=== PATIENT | male | born 1940 | race Caucasian/White ===

== ENCOUNTER → 2021-06-19 10:15 | Outpatient (BNVA) | payer MEDICARE, MEDICAID, SELFPAY | PROVIDERS: Visit Provider Surgery | DX: Z20.822 Contact with and (suspected) exposure to COVID-19 (principal) | CPT/HCPCS: 87635 ==

== ENCOUNTER → 2021-07-03 10:11 | Outpatient (BNVA) | payer MEDICARE, MEDICAID, SELFPAY | PROVIDERS: Visit Provider Surgery | DX: Z11.52 Encounter for screening for COVID-19 (principal); Z20.822 Contact with and (suspected) exposure to COVID-19 | CPT/HCPCS: 87635 ==

== ENCOUNTER 2021-07-08 08:19 | Day surgery (SDC) | payer MEDICARE, MEDICAID, SELFPAY ==
[2021-07-07 14:00] VITALS: BMI 22.0
[2021-07-08] VITALS (9 sets, daily range): BP systolic 124–188; BP diastolic 61–98; PULSE 57–65; RESP 12–18; TEMP 36.6–36.8; O2SAT 96–100
[2021-07-08] MEDS: sodium chloride 0.9% 1,000 ML 30 ML IV (09:01)
--- NOTE | 2021-07-08 10:03 | ANES.PREANE2 ---
Pre-Anesthetic Assessment Pre-Anesthetic Assessment: Height/Weight: Height 1.73 m Weight 65.771 kg Temp Pulse Resp Pulse Ox 98.3 F 58 L 18 100 07/08/21 08:39 07/08/21 08:39 07/08/21 08:39 07/08/21 08:39 Preop Diagnosis: Basal cell carcinoma of the skin of the neck Proposed Procedure: Operation Date: 07/08/21 12:25 Proposed Procedures p Excision Mass/Lesion/Cyst Upper Extremit right side of neck(Right) - Ady White MD Familial anesthetic complications: none Was Beta Reagan taken within 24 hours: N/A Was Clonidine taken within 24 hours: N/A Last intake: Intake Last Liquid Date 07/07/21 Last Liquid Time 16:00 Last Solid Date 07/07/21 Last Solid Time 16:00 Social: Social History: Alcohol and No tobacco Comment: 1-2 beers daily Exam: Pre-Anes Outpt Exam: alert, oriented x 3, clear to auscultation bilaterally and regular rate & rhythm Airway: Cervical ROM: WNL MP: 2 Dentition: Full Pulmonary: Pulmonary: Asthma (childhood asthma) Comments: allergies CV/HEM: CV/HEM: HTN GI: GI: GERD Anesthetic Plan: ASA status: 2 Anesthesia: General Risk of > 500 ml blood loss (7ml/kg in children): No Meds/Allergies Current Medications: Current Medications Generic Name Dose Route Start Last Admin Trade Name Freq PRN Reason Stop Dose Admin Sodium Chloride 1,000 mls @ 30 ml s/hr 07/08/21 08:45 07/08/21 09:01 Sodium Chloride 0.9% IV 07/09/21 08:44 30 mls/hr .Q24H DUNG Administration PFSH Anesthesia PFSH: Family History Other CAD (coronary artery disease) Cancer Denies family history of Diabetes Dementia Social History Smoking and tobacco status: former smoker Data Anesthesia Cardiac Studies: No Data to Display
--- NOTE | 2021-07-08 10:37 | P.HP_ITS ---
Same Day Surgery H&P Indication for Procedure/HPI DATE OF PROCEDURE: July 08, 2021 CHIEF COMPLAINT/INDICATIONFOR SURGICAL PROCEDURE: Spot on my neck PREOP DIAGNOSIS: Basal cell carcinoma of the skin of the neck PLANNED PROCEDRUE: Operation Date: 07/08/21 12:25 Proposed Procedures p Excision Mass/Lesion/Cyst Upper Extremit right side of neck(Right) - Ady White MD This is a pleasant 80 years old gentleman referred to my practice after being diagnosed with basal cell carcinoma of the skin lesion that was biopsied on the right side of the neck. Patient reports to me that he had a previous skin cancer on the right shoulder that was removed before. Interval history 07/08/2021 Patient comes today for wide local excision of right-sided neck basal cell carcinoma ROS Systems have been reviewed negative except as per the above or per problem list Medications/Allergies* Home Medications Medication Instructions Recorded Confirmed Type amlodipine 10 mg tablet 10 mg PO DAILY 06/05/21 07/08/21 History lisinopril 10 mg tablet 10 mg PO DAILY 06/05/21 07/08/21 History omeprazole 20 mg capsule,delayed 20 mg PO DAILY 06/05/21 07/08/21 History release Allergies/Adverse Reactions Allergy/AdvReac Type Severity Reaction Status Date / Time codeine Allergy Unknown Unknown Verified 07/08/21 10:38 hydrochlorothiazide Allergy Unknown Unknown Verified 07/08/21 10:38 morphine Allergy Unknown Unknown Verified 07/08/21 10:38 Current Medications: Generic Name Dose Route Start Last Admin Trade Name Freq PRN Reason Stop Dose Admin Sodium Chloride 1,000 mls @ 30 mls/hr 07/08/21 08:45 07/08/21 09:01 Sodium Chloride 0.9% IV 07/09/21 08:44 30 mls/hr .Q24H DUNG Administration Pertinent History/Comorbid Conditions* Family History (Updated 06/06/21 @ 14:44 by Yenni Comer) CAD (coronary artery disease) Cancer Denies family history of Diabetes Dementia Social History Smoking and tobacco status: former smoker Pertinent Exam Findings alert, oriented x 3, regular rate & rhythm, operative site marked and procedure specific exam findings (Right-sided neck scar) Recommendations Surgery/Procedure today (Wide local excision of right-sided neck basal cell carcinoma) Coding Level of Care Code Acute Supervisor Rubber Covering for g Keith
[2021-07-08] MEDS: lidocaine 2% INJ 20 mL INJECTION (11:20)
--- NOTE | 2021-07-08 11:39 | P.OP_ITS ---
Operative Report Date of procedure: July 08, 2021 Pre-op Diagnosis: Basal cell carcinoma of the skin of the neck Post-op diagnosis: same Procedure Done: Wide local excision of right-sided neck basal cell carcinoma Elevation of skin flaps Specimens removed/disposition: Short sutures marked superior and long sutures marked lateral Surgeon: Ady White Section Laborer: technical support associate Nader Circulating nurse Janis Miles Anesthesia: General (LMA web content writer Adria) Estimated blood loss (mL): 10 Condition: stable Disposition: same day Brief History: History of right-sided neck basal cell carcinoma. Procedure: After identifying the patient holding area, the correct site and side was marked before the procedure by myself, patient was then taken to the operative suite, was placed in first in supine position, LMA was placed by the anesthesia provider ,Time-out was done verifying the patient's name/date of /planned procedure and destination after the procedure, all were in agreement. SCDs confirmed to be functioning, preoperative antibiotics administered per protocol, and beta lore protocol was confirmed Patient's neck was then placed inthe left lateral position and was appropriately padded and secured to the operating table, Right arm was tucked to his body, prep and drape of the right neck region was done under the usual sterile technique. The neck mass was well palpable at the right submandibular region Local anesthesia 2% lidocaine was infiltrated site of the incision, elliptical transverse skin incision was done with appropriate safety margin, including skin and subcutaneous tissues, including platysma muscle layer. The whole previous scar and residual lesions were excised en jose, the specimen had short sutures marked superior and long sutures marked lateral. Measurement of the scar 3 cm x 0.5 cm x 0.3 cm Elevation of superior and inferior skin flaps was done for appropriate closure without tension, appropriate hemostasis was achieved, deep subcuticular 3-0 Vicryl including platysma muscle was done followed by continuous 4-0 nylon sutures then triple antibiotic ointment then pressure dressing Count was completed at the end of the procedure Patient was taken to the recovery room in stable condition after extubation I was present for the whole entire procedure
[2021-07-08] MEDS: neomycin-poly-bacitracin oint 28 gm 1 APPLIC TOPICAL (11:40)
--- NOTE | 2021-07-08 11:54 | P.PCN_ITS ---
PACU note PACU note: VSS, Good respiratory effort, report to CONDUCTOR AND ENGINEER Post-Anesthesia Exam: awake
--- NOTE | 2021-07-08 11:54 | PM.PACU ---
PACU note PACU note: VSS, Good respiratory effort, report to BRIEFCASE SEWER Post-Anesthesia Exam: awake
--- NOTE | 2021-07-08 14:14 | ANE.PACU2 ---
Inpatient post-anesthesia follow up: Airway intact: Yes Vital signs: Temperature 98.3 F Pulse Rate 58 Respiratory Rate 18 Blood Pressure 135/66 Pulse Oximetry 100 Oxygen Delivery Me thod Room Air Oxygen Flow Rate Fraction of Inspir ed Oxygen Hydration adequate: Yes Nausea and vomiting: No Pain level: 2 Mental status: Baseline
== END 2021-07-08 14:05 | disposition home or self-care (01) ==
PROVIDERS: PCP Family Medicine; Visit Provider Surgery
PROC: (CPT 11623; principal; 2021-07-08 12:15)
DX: C44.41 Basal cell carcinoma of skin of scalp and neck (principal); I10 Essential (primary) hypertension; K21.9 Gastro-esophageal reflux disease without esophagitis; Z87.891 Personal history of nicotine dependence
CPT/HCPCS: 11623; 17999; 88304; J0690; J2704; J3010; J7030

== ENCOUNTER → 2022-02-26 13:10 | Outpatient (BNVA) | payer MEDICARE, MEDICAID, SELFPAY | PROVIDERS: PCP Family Medicine; Visit Provider Surgery | DX: Z98.890 Other specified postprocedural states (principal) ==

== ENCOUNTER 2023-07-12 10:31 | Oncology outpatient (recurring) (ONCR) | payer MEDICARE, MEDICAID, SELFPAY ==
[2023-07-12 13:37] LABS: Basophils % 0.5 %; Eosinophils % 0.2 %; Hematocrit 35.9 % (42.0-52.0); Hemoglobin 12.4 g/dL (11.7-16.6); Lymphocytes # 1.1 10^3/uL (0.8-4.8); Lymphocytes % 19.4 %; Mean Corpuscular HGB Conc 34.5 g/dL (30.0-36.0); Mean Corpuscular Hemoglobin 32.8 pg (28.0-34.0); Mean Platelet Volume 12.6 fL (7.4-10.4); Monocytes # 0.7 10^3/uL (0.2-0.9); Monocytes % 11.5 %; Neutrophils # 3.82 10^3/uL (1.8-7.7); Neutrophils % 66.3 %; Nucleated Red Blood Cells % 0 %; Platelet Count 95 10^3/cmm (130-400); Red Blood Count 3.78 10^6/uL (4.1-5.3); Red Cell Distribution Width 13.5 % (12.1-15.1); White Blood Count 5.8 10^3/uL (4.0-10.0)
[2023-07-12 14:15] LABS: Hepatitis A Antibody IgM Non-Reactive (Nonreactive); Hepatitis B Core AB, Total Non-Reactive (Nonreactive); Hepatitis B Surface Antigen Non-Reactive (Nonreactive); Hepatitis C Virus Antibody Non-Reactive (Nonreactive)
[2023-07-12 14:16] LABS: Hepatitis B Surface AB < 3.5 (11.5-1000)
[2023-07-12 14:19] LABS: Alanine Aminotransferase 14 U/L (0-41); Albumin Level 4.7 g/dL (3.5-5.2); Alkaline Phosphatase 56 U/L (40-130); Anion Gap 16.1 (5-19); Aspartate Amino Transferase 18 U/L (0-40); Blood Urea Nitrogen 15 mg/dL (8-23); Calcium 9.3 mg/dL (8.5-10.5); Carbon Dioxide 24 mmol/L (22-29); Chloride 105 mmol/L (98-107); Ferritin 114 ng/mL (30-400); Globulin 2.4 g/dL (1.3-4.6); Glucose 89 mg/dL (65-115); Iron 104 ug/dL (59-158); Osmolality Calculated 292 mOsm/kg (285-295); Percent Saturation 30.3 % (20-50); Potassium 4.1 mmol/L (3.5-5.1); Sodium 141 mmol/L (136-145); Thyroid Stimulating Hormone 1.45 uIU/mL (0.27-4.20); Total Bilirubin 0.8 mg/dL (0.15-1.2); Total Iron Binding Capacity 343 mcg/dl; Total Protein 7.1 g/dL (6.6-8.7); Unsaturated Iron Binding 239 ug/dL (112-347); Vitamin B12 1467 pg/mL (232-1245)
[2023-07-12 14:22] LABS: Folate Level > 20.0 ng/mL (4.5-32.2)
[2023-07-12 14:26] LABS: LAB Peripheral Smear Sent for Review
[2023-07-12 14:42] LABS: Free T4 Free Thyroxine 1.14 ng/dL (0.82-1.77)
[2023-07-13 18:44] LABS: Anti-Nuclear Antibody Screen NEGATIVE (NEGATIVE)
[2023-07-14 14:07] LABS: Leukemia Profile (BBPL) See Report
[2023-07-14 19:00] LABS: PTT-LA-Screen 35 sec (< OR = 40)
[2023-07-16 20:50] LABS: P190 BCR ALB1 NOT DETECTED; P190 BCR ALB1 Yes Test Yes; P210 BCR ALB1 NOT DETECTED; P210 BCR ALB1 Yes Test Yes; Prior Results NG; Source blood
== END 2023-07-22 23:59 | disposition home or self-care (01) ==
PROVIDERS: PCP Family Medicine; Visit Provider Internal Medicine Medical Oncology
DX: D61.818 Other pancytopenia (principal); D50.9 Iron deficiency anemia, unspecified; F10.20 Alcohol dependence, uncomplicated; D69.6 Thrombocytopenia, unspecified; Z79.899 Other long term (current) drug therapy; Z87.891 Personal history of nicotine dependence
CPT/HCPCS: 36415; 80053; 80503; 81206; 81207; 82607; 82728; 82746; 83540; 83550; 84439; 84443; 85025; 85613; 85730; 86038; 86705; 86706; 86709; 86803; 87340; 88184; 88185; 99205

== ENCOUNTER 2023-07-20 06:50 | Outpatient (CLI) | payer MEDICARE, MEDICAID, SELFPAY ==
--- NOTE | 2023-07-20 07:15 | US_ITS ---
WS: [id number] Complete ABDOMINAL ULTRASOUND HISTORY: Special attention to liver and spleen COMPARISON: None available. Liver: 12.9 cm in length. Normal size liver and echogenicity. No bile duct dilatation or mass. Portal Vein: Normal hepatopetal flow with monophasic waveform. Gallbladder: Markedly contracted gallbladder. Patient was not fasting for this examination. No stones are identified prior CBD: 0.4 cm Pancreas: Partially obscured. Only a small portion of the body is visualized. Remaining gland is obsc ured by gas. Right kidney: 11.7 cm x 5.9 x 6.6 cm. Cortex: 1.4 cm. Heterogeneous kidney. No obstruction. There is a solid mass of increased echogenicity with a few scat tered hypoechoic areas involving the superior pole. Mass measures approximately 6.0 x 5.7 cm and need s to be further evaluated. There is bulging of the contour. There is an additional area of increased echogenicity within the mid renal parenchyma. Left kidney: 11.6 cm x 4.9 cm x 4.9 cm. Cortex: 1.2 cm. Normal size and echogenicity. No hydronephrosis or mass. Simple cyst superior pole 2.6 x 2.3 x 1.8 cm . Spleen: Normal size spleen. Spleen measures 12.5 cm. No mass. Aorta and IVC: Unremarkable abdominal aorta and IVC. Impression: 1. Solid, hyperechoic mass superior pole RIGHT kidney measures 6.0 x 5.7 cm. Additional area of incre ased echogenicity in the mid kidney. Recommend follow-up renal mass CT protocol. Differential include s atypical renal cell neoplasm, oncocytoma and angiomyolipoma. 2. Contracted gallbladder due to nonfasting state. Gallbladder with poor visualization. 3. Normal size liver and spleen. 4. Simple cyst superior pole LEFT kidney.
== END 2023-07-20 06:51 | disposition home or self-care (01) ==
LOC: RAD 06:51
PROVIDERS: PCP Family Medicine; Visit Provider Internal Medicine Medical Oncology
DX: Z87.898 Personal history of other specified conditions (principal); N28.89 Other specified disorders of kidney and ureter; N28.1 Cyst of kidney, acquired
CPT/HCPCS: 76700

== ENCOUNTER 2023-08-09 15:40 | Oncology outpatient (recurring) (ONCR) | payer MEDICARE, MEDICAID, SELFPAY | END 2023-08-21 23:59 | disposition home or self-care (01) | PROVIDERS: PCP Family Medicine; Visit Provider Internal Medicine Medical Oncology | DX: N28.89 Other specified disorders of kidney and ureter (principal); D75.89 Other specified diseases of blood and blood-forming organs | CPT/HCPCS: 99214 ==

== ENCOUNTER 2023-08-12 15:20 | Outpatient (CLI) | payer MEDICARE, MEDICAID, SELFPAY ==
--- NOTE | 2023-08-12 15:30 | CT_ITS ---
WS: [id number] CT ABDOMEN WITH AND WITHOUT CONTRAST HISTORY: Renal mass seen by ultrasound. Follow-up. Multiphase [address] evaluation of the kidneys performed. Oral contrast has not been provided. Coronal and sagittal reformats are submitted. All CT scans at [facility] use at least one of these do se optimization techniques: automated exposure control; mA and/or kV adjustment per patient size (inc ludes targeted exams where dose is matched to clinical indication); or iterative reconstruction. IV CONTRAST: Omnipaque 350; 100 mL IV. Oral contrast: No DLP: 1064.86 mGy.cm COMPARISON: Ultrasound 07/20/2023 Lower thorax: Hyperinflated. Subsegmental area of atelectasis along the medial RIGHT lower lobe. Mode rate cardiac enlargement. All chambers are enlarged. Small hiatal hernia. Liver/biliary system: Normal liver. No masses. No bile duct dilatation. Normal portal vein enhancemen t. Gallbladder: Contracted gallbladder. May be due to nonfasting state. No stones or adjacent inflammati on. Pancreas: Normal size pancreas and pancreatic duct. No adjacent inflammation. Spleen: Normal size spleen. No mass or infarct. Adrenal glands: Normal RIGHT adrenal gland. Very slight nodularity of the LEFT adrenal gland. Right kidney: There is a large heterogeneously enhancing mass associated with the mid RIGHT kidney. M ass measures 5.8 x 5.3 cm and extends over a length of 7.0 cm. There is distortion of the adjacent re nal pelvis. No obstruction. No additional renal mass identified. There are a few tiny cortical too sm all to characterize hypodensities. Good excretion from the kidney. No portal vein thrombosis. Left kidney: Multiple scattered cysts throughout the kidney. The largest from the upper pole measures 2.7 x 2.8 cm. Aorta: Moderate atherosclerosis. No aneurysm. Lymphadenopathy: None. Free fluid: None. GI tract: Moderate distention of the stomach with food products. No GI tract obstruction. Abdominal wall: Fat containing umbilical hernia. Visualized osseous structures: L5 anterolisthesis by 13 mm. IMPRESSION: 1. Large RIGHT renal mass most consistent with renal cell carcinoma. Mass measures 5.8 x 5.3 x 7.0 c m. No obstruction of the kidney. 2. No renal vein thrombosis. 3. Several LEFT renal cysts but no solid mass. 4. Small hiatal hernia.
[2023-08-12] MEDS: iohexol 350 mg/mL 500 mL Btl (per mL) IV (15:37)
== END 2023-08-12 15:21 | disposition home or self-care (01) ==
LOC: RAD 15:24
PROVIDERS: PCP Family Medicine; Visit Provider Internal Medicine Medical Oncology
DX: R93.5 Abnormal findings on diagnostic imaging of other abdominal regions, including retroperitoneum (principal); N28.89 Other specified disorders of kidney and ureter; N28.1 Cyst of kidney, acquired; K44.9 Diaphragmatic hernia without obstruction or gangrene
CPT/HCPCS: 74170; Q9967

== ENCOUNTER 2023-08-26 08:03 | Outpatient (CLI) | payer MEDICARE, MEDICAID, SELFPAY ==
--- NOTE | 2023-08-26 08:07 | USCV_ITS ---
Junito Hong Age: 82 Gender: M : 1940 Exam Date: 08/26/2023 08:24 Ordering Phys: Prince Ashley Belcher Technologist: [place] [facility] [place]ication: PVC,s sinus bradycardia BP: 159 / 80 HR: 56 Rhythm: Sinus Technical Quality: Good MEASUREMENTS (Male / Female) Normal Values 2D ECHO LV Diastolic Diameter PLAX 6.1 cm 4.2 - 5.9 / 3.9 - 5.3 cm LV Systolic Diameter PLAX 3.5 cm IVS Diastolic Thickness 1.2 cm 0.6 - 1.0 / 0.6 - 0.9 cm IVS Systolic Thickness 1.7 cm LVPW Diastolic Thickness 1.2 cm 0.6 - 1.0 / 0.6 - 0.9 cm LVPW Systolic Thickness 1.4 cm LV Ejection Fraction 2D Teich 73.4 % LV Ejection Fraction MOD 2C 85.6 % LV Ejection Fraction 2C AL 86.0 % LA Diameter 4.9 cm IVC Diameter 1.9 cm M-MODE Aortic Annulus Diameter 3.6 cm LA Ao Ratio MM 1.4 MV E Point Septal Separation 1.0 cm DOPPLER AV Peak Velocity 160.0 cm/s LVOT Peak Velocity 104.0 cm/s MV Area PHT 5.0 cm squared Mitral E to A Ratio 2.4 MV E' Velocity 57.0 cm/s Mitral E to MV E' Ratio 8.8 Mitral E to LV E' Lateral Ratio 7.1 Mitral E to LV E' Septal Ratio 11.7 TR Peak Velocity 345.3 cm/s TR Peak Gradient 47.7 mmHg Right Atrial Pressure 3.0 mmHg Pulmonary Artery Systolic Pressu 50.7 mmHg RV Acceleration Time 0.2 s FINDINGS Left Ventricle Normal left ventricular size, systolic function and wall thickness, with no regional wall motion abnormalities. Left ventricular ejection fraction is estimated at 70 %. Normal diastolic function. Right Ventricle Normal right ventricular size and systolic function. Right ventricular systolic pressure 59 mmHg. Right Atrium Normal right atrial size. Left Atrium Normal left atrial size. Mitral Valve Mild mitral annular calcification. Mildly thickened mitral valve. No mitral valve stenosis. Trace mitral valve regurgitation. Aortic Valve Structurally normal trileaflet aortic valve. No aortic valve stenosis. [id number]-aj-cnduqnnt aortic valve regurgitation. Tricuspid Valve Structurally normal tricuspid valve. No tricuspid valve stenosis. Mild tricuspid valve regurgitation. Pulmonic Valve Structurally normal pulmonic valve. No pulmonary valve stenosis. Moderate pulmonary valve regurgitation. Pericardium No pericardial effusion. Aorta Normal size aortic root and proximal ascending aorta. IVC Normal IVC dimension with >50% respiratory change of the inferior vena cava. CONCLUSIONS 1. Normal left ventricular size, systolic function and wall thickness, with no regional wall motion abnormalities. Left ventricular ejection fraction is estimated at 70 %. Normal diastolic function. 2. Ggfe-et-bmpzuzsr aortic valve regurgitation. 3. Moderate pulmonary valve regurgitation. 4. No prior similar studies to compare. Lilly Eric MD (Electronically Signed) Final Date: 29 August 2023 21:51 S
[2023-08-26 08:09] VITALS: BMI 23.6
--- NOTE | 2023-08-26 08:14 | ECG_ITS ---
[facility] Test Date: 2023-08-26 Pat Name: Junito Hong Department: Room: Gender: Male Commodity Management Specialist: : 1940 Requested By: Prince Belcher Order Number: [id number] Ashli MD: Lilly Eric M.D. Interpretive Statements Name of study: Lexiscan sestamibi myocardial perfusion imaging Date of study: 08/26/2023 Indication: Exertional shortness of breath Ordering Provider: Narciso Belcher PROCEDURE: At the baseline, the blood pressure was 165/69 mm Hg with a heart rate of 51 bpm. The electrocardiogram showed sinus bradycardia, normal axis. Normal ST and T's. ??? The Lexiscan was infused over a period of 20 seconds. A total of 0.4 milligrams of Lexiscan was infused. The stress phase was continued for a total of 5 minutes. Heart rate at the end of the stress phase was 64 bpm with a blood pressure of 151/59 mm Hg. The EKG at the peak infusion revealed no significant ST-T wave changes. ??? Sestamibi was injected 20 seconds after the Lexiscan infusion. ??? Blood pressure at the end of the recovery phase was 153/59 mm Hg with a heart rate of 61 beats per minute. ??? CONCLUSION: 1. Normal EKG response to LexiScan infusion. 2. No LexiScan induced chest pain or cardiac arrhythmia. 3. Normal blood pressure and heart rate response. 4. Sestamibi/sestamibi perfusion scan pending; see separate report. Electronically Signed On 08-30-2023 12:41:55 CDT by Lilly Eric M.D. [id number]
--- NOTE | 2023-08-26 08:15 | NMCV_ITS ---
NM julieta perf SPECT r/s* [id number] Junito Hong Age: 82 Gender: M : 1940 Exam Date: 08/26/2023 08:15 Ordering Phys: Prince Ashley Belcher Technologist: SUZAN Akins Exam Location: [facility] [address] Indications: VENTRICULAR PREMATURE DEPOLARIZATION, BRADYCARDIA, ATRIOVENTRICULAR BLOCK STRESS TEST Please see separate stress test report in [facility] for full findings IMAGE PROTOCOL Rest/Stress 1 Lexiscan Day Radiopharmaceutical Dose (mCi) Administration Site Administered by Rest: Tc-99m 10.8 IV SUZAN Higuera Sestamibi Stress:Tc-99m 32.4 IV SUZAN Higuera Sestamibi Rest: 26-Aug-2023 60 Discovery 630 Stress: 26-Aug-2023 30 Discovery 630 0.4mg Lexiscan. Images obtained in supine and prone position. SPECT RESULTS Technical Quality: Excellent Raw Data Analysis: Normal Image Corrections: No attenuation or motion correction applied Summed Stress Score: 0 Summed Rest Score: 0 Summed Difference Score: 0 PERFUSION FINDINGS SPECT images demonstrate homogeneous tracer distribution throughout the myocardium. FUNCTIONAL RESULTS (calculated via Gated SPECT) Stress Image LV EF (%): 76 Stress EDV (mL):136 TID: 0.84 Stress ESV (mL):33 FUNCTIONAL FINDINGS: The left ventricle is normal in size. Transient Ischemia Dilatation of 0.84. The left ventricular ejection fraction is normal with a value of 76%. There is normal left ventricular wall thickening. IMPRESSIONS 1. Myocardial perfusion imaging is normal. 2. Overall left ventricular systolic function is normal without regional wall motion abnormalities, LVEF=76%. 3. EKG portion of the study will be reported separately. 4. Scan indicates low risk for cardiac events. Lilly Eric MD (Electronically Signed) Final Date: 29 August 2023 20:18 S
[2023-08-26] MEDS: regadenoson 0.4 Mg/5 ml Syringe IVP (11:18)
[2023-08-26 11:23] VITALS: BP 151/59; PULSE 66
== END 2023-08-26 08:04 | disposition home or self-care (01) ==
PROVIDERS: PCP Family Medicine; Visit Provider Student in an Organized Health Care Education/Training Program
DX: R07.9 Chest pain, unspecified (principal); I49.3 Ventricular premature depolarization; I35.1 Nonrheumatic aortic (valve) insufficiency; I37.1 Nonrheumatic pulmonary valve insufficiency
CPT/HCPCS: 36415; 78452; 93017; 93306; 96374; A9500; J2785